=== PATIENT | male | born 1940 | race Caucasian/White ===

== ENCOUNTER 2018-01-13 07:44 | Observation (INO) | payer OTHER ==
[~2018-01-13 07:44] MED LIST: BUPI/epINEPH/KETOROLAC IU ONE; NS IV ONE; POVIDONE-IODINE 20 ML in SODIUM CL IRRIG SOLUTION 500 ML IRR ONE; ROPIVACAINE 0.2% 80 MG, EPINEPHrine 0.2 MG, KETOROLAC TROMETHAMINE 30 MG in SYRINGE 0 ML IU ONE; TRANEXAMIC ACID IV ONE
[2018-01-13] MEDS ORDERED: ACETAMINOPHEN 325 MG TAB PO ONE (08:02)
[2018-01-13] MEDS ORDERED: LR 1,000 ML IV ONE (08:02)
[2018-01-13] MEDS ORDERED: ceFAZolin 2 GM/SWFI 2 GM/20 ML SYR IVP ONE (08:02)
[2018-01-13] MEDS ORDERED: LIDOCAINE 1% 2 ML INJ ID PRN (08:02)
[2018-01-13] MEDS ORDERED: ONDANSETRON 4 MG/2 ML VIAL IVP ONE (08:02)
[2018-01-13] MEDS ORDERED: GABAPENTIN 300 MG CAP PO ONE (08:02)
[2018-01-13] MEDS ORDERED: FAMOTIDINE 20 MG TAB PO ONE (08:02)
[2018-01-13] MEDS ORDERED: DEXAMETHASONE 4 MG/ML VIAL IVP ONE (08:02)
[2018-01-13] MEDS ORDERED: VANCOMYCIN 1 GM VIAL ONE (08:16)
[2018-01-13] MEDS ORDERED: ceFAZolin 1 GM/5 ML SYR ONE (08:17)
--- NOTE | 2018-01-13 08:59 | PDHPUP ---
History & Physical Update H&P update statement: This history and physical update is based on an assessment of the patient which was completed after admission or registration (within 24 hours), but prior to the surgery/procedure. H&P update: H&P reviewed & patient examined
[2018-01-13] MEDS ORDERED: MIDAZOLAM 2 MG/2 ML VIAL IVP ONE (09:34)
[2018-01-13] MEDS ORDERED: MIDAZOLAM 2 MG/2 ML VIAL ONE (09:37)
[2018-01-13] MEDS ORDERED: PROPOFOL/EMULSION 500 MG/50 ML BOTTLE IV ONE (09:40)
[2018-01-13] MEDS ORDERED: PROPOFOL 200 MG/20 ML VIAL ONE (09:41)
--- NOTE | 2018-01-13 09:59 | PDANEPAE ---
ANE History of Present Illness Knee OA ANE Past Medical History - Cardiovascular History Hx Hypertension: No Hx Arrhythmias: No Hx Chest Pain: No Hx Coronary Artery / Peripheral Vascular Disease: No Hx CHF / Valvular Disease: No Hx Palpitations: No - Pulmonary History Hx COPD: No Hx Asthma/Reactive Airway Disease: No Hx Recent Upper Respiratory Infection: No Hx Oxygen in Use at Home: No Hx Sleep Apnea: No Sleep Apnea Screening Result - Last Documented: Negative - Neurologic History Hx Cerebrovascular Accident: No Hx Seizures: No Hx Dementia: No - Endocrine History Hx Diabetes: No - Renal History Hx Renal Disorders: No - Liver History Hx Hepatic Disorders: No - Neurological & Psychiatric Hx Hx Neurological and Psychiatric Disorders: No - Cancer History Hx Cancer: No - Congenital Disorder History Hx Congenital Disorders: No - GI History Hx Gastrointestinal Disorders: No - Other Health History Other Health History: NONE - Chronic Pain History Chronic Pain: No - Surgical History Prior Surgeries: NONE ANE Review of Systems Review of Systems: - Exercise capacity METS (RN): 4 METS ANE Patient History - Allergies Allergies/Adverse Reactions: No Known Allergies Allergy (Verified 12/23/17 12:31) - Home Medications Home medications: home medication list seen and reviewed Home Medications: Aspirin [Aspirin 81mg (*)] 81 mg PO DAILY 12/22/17 [Last Taken 1 Week Ago ~01/06] - NPO status NPO Since - Liquids (Date): 01/12/18 NPO Since - Liquids (Time): 20:30 NPO Since - Solids (Date): 01/12/18 NPO Since - Solids (Time): 19:00 - Anes Hx Anes Hx: no prior problems (Zero prior GA or RA, local only) - Smoking Hx Smoking Status: Former smoker - Family Anes Hx Family Hx Anesthesia Complications: NONE ANE Labs/Vital Signs - Vital Signs Blood Pressure: 174/99 Heart Rate: 55 Respiratory Rate: 16 O2 Sat (%): 96 Height: 175.26 cm Weight: 72.121 kg ANE Physical Exam - Airway Neck exam: FROM Mallampati Score: Class 2 Mouth exam: dentures - Pulmonary Pulmonary: clear to auscultation - Cardiovascular Cardiovascular: regular rate and rhythym - ASA Status ASA Status: I ANE Anesthesia Plan Anesthesia Plan: spinal Regional Anesthesia: continuous NB (Will dose in AM and pull cath), adductor canal FNB
--- NOTE | 2018-01-13 10:26 | PDANEPAE ---
ANE Past Medical History - Cardiovascular History Hx Hypertension: No Hx Arrhythmias: No Hx Chest Pain: No Hx Coronary Artery / Peripheral Vascular Disease: No Hx CHF / Valvular Disease: No Hx Palpitations: No - Pulmonary History Hx COPD: No Hx Asthma/Reactive Airway Disease: No Hx Recent Upper Respiratory Infection: No Hx Oxygen in Use at Home: No Hx Sleep Apnea: No Sleep Apnea Screening Result - Last Documented: Negative - Neurologic History Hx Cerebrovascular Accident: No Hx Seizures: No Hx Dementia: No - Endocrine History Hx Diabetes: No - Renal History Hx Renal Disorders: No - Liver History Hx Hepatic Disorders: No - Neurological & Psychiatric Hx Hx Neurological and Psychiatric Disorders: No - Cancer History Hx Cancer: No - Congenital Disorder History Hx Congenital Disorders: No - GI History Hx Gastrointestinal Disorders: No - Other Health History Other Health History: NONE - Chronic Pain History Chronic Pain: No - Surgical History Prior Surgeries: NONE ANE Review of Systems Review of Systems: - Exercise capacity METS (RN): 4 METS ANE Patient History - Allergies Allergies/Adverse Reactions: No Known Allergies Allergy (Verified 12/23/17 12:31) - Home Medications Home medications: home medication list seen and reviewed Home Medications: Aspirin [Aspirin 81mg (*)] 81 mg PO DAILY 12/22/17 [Last Taken 1 Week Ago ~01/06] - NPO status NPO Since - Liquids (Date): 01/12/18 NPO Since - Liquids (Time): 20:30 NPO Since - Solids (Date): 01/12/18 NPO Since - Solids (Time): 19:00 - Smoking Hx Smoking Status: Former smoker - Family Anes Hx Family Hx Anesthesia Complications: NONE ANE Labs/Vital Signs - Vital Signs Blood Pressure: 174/99 Heart Rate: 55 Respiratory Rate: 16 O2 Sat (%): 96 Height: 175.26 cm Weight: 72.121 kg
[2018-01-13] MEDS ORDERED: ROPIVACAINE HCL 150 MG/30 ML INJ ONE (11:00)
--- NOTE | 2018-01-13 11:17 | POSTOPPROG ---
Post Op Note Date of Operation: 01/13/18 Surgeon: Eric Iqbal Customer Service Associate: Shaggy Anesthesiologist: Dr. Paul Mancilla Post-op Diagnosis: Right knee severe degenerative arthritis Procedure: Right total knee arthroplasty Inf/Abcess present in the surg proc area at time of surgery?: No EBL: 50-100 (Adductor canal block in PACU with indwelling catheter.)
[2018-01-13] MEDS ORDERED: traMADol 50 MG TAB PO PRN (11:31)
[2018-01-13] MEDS ORDERED: BISACODYL 10 MG SUPP PR PRN (11:31)
[2018-01-13] MEDS ORDERED: NS 500 ML IV PRN (11:31)
[2018-01-13] MEDS ORDERED: POLYETHYLENE GLYCOL 3350 17 GM PKT PO PRN (11:31)
[2018-01-13] MEDS ORDERED: ONDANSETRON DISINTEGRATING 4 MG TAB PO PRN (11:31)
[2018-01-13] MEDS ORDERED: PROMETHAZINE HCL 25 MG SUPPR PR PRN (11:31)
[2018-01-13] MEDS ORDERED: DIPHENOXYLATE/ATROPINE LOMOTIL 1 TAB PO PRN (11:31)
[2018-01-13] MEDS ORDERED: LACTULOSE 20 GM/30 ML UDCUP PO PRN (11:31)
[2018-01-13] MEDS ORDERED: TEMAZEPAM 15 MG CAP PO PRN (11:31)
[2018-01-13] MEDS ORDERED: METOCLOPRAMIDE 10 MG/2 ML VIAL IVP PRN (11:31)
[2018-01-13] MEDS ORDERED: PROMETHAZINE HCL 25 MG/ML INJ IVP PRN (11:31)
[2018-01-13] MEDS ORDERED: MAGNESIUM HYDROXIDE 30 ML UDCUP PO PRN (11:31)
[2018-01-13] MEDS ORDERED: diphenhydrAMINE 25 MG CAP PO PRN (11:31)
[2018-01-13] MEDS ORDERED: CYCLOBENZAPRINE 10 MG TAB PO PRN (11:31)
[2018-01-13] MEDS ORDERED: ONDANSETRON 4 MG/2 ML VIAL IVP PRN (11:31)
--- NOTE | 2018-01-13 11:53 | POSTANESTH ---
Post Anesthetic Evaluation Cardiovascular Status: Similar to Pre-Op Cond Respiratory Status: Similar to Pre-op Cond. Level of Consciousness/Mental Status: Alert and Oriented Pain Control: Adequate, Prn Tx Ordered Nausea/Vomiting Control: Adequate, Prn Tx Ordered Complications Possibly Related to Anesthesia: None Noted (Indwelling AC block done in PACU.)
[2018-01-13] MEDS: ACETAMINOPHEN 325 MG TAB PO SCH ×3 (12:00→23:40)
[2018-01-13] MEDS ORDERED: LR 1,000 ML IV SCH (12:00)
--- NOTE | 2018-01-13 13:12 | GOP ---
[f rep st] OPERATIVE REPORT DATE OF OPERATION: 01/13/2018 SURGEON: Eric Iqbal MD WRAPPER CASHIER: Nehemias Méndez and Pepe Alexander. ANESTHESIA: Combination of Marcaine, spinal, IV sedation, and adductor canal block. ANESTHESIOLOGIST: Dr. Paul Mancilla. PREOPERATIVE DIAGNOSIS: Right knee severe degenerative arthritis. POSTOPERATIVE DIAGNOSIS: Right knee severe degenerative arthritis. PROCEDURE PERFORMED: Right total knee arthroplasty, cemented, Sr and Nephew Journey II, posterior stabilized surgeon. FINDINGS: DESCRIPTION OF PROCEDURE: The patient was given 2 g of IV Ancef preoperatively within 60 minutes of surgery. He also received IV tranexamic acid at a dose of 10 mg/kg. He was placed on the operating room table and given spinal anesthesia with Marcaine by Dr. Mancilla. He was then placed supine and given IV sedation. A Hatch catheter was not used. He wore a ALEXI stocking and SCD on the nonoper ative leg. His right lower extremity was prepped with ChloraPrep from the upper thigh tourniquet to the tips of the toes. It was draped free using sterile sheets, stockinette, and Ioban plastic adhesi ve drapes. The lower leg was wrapped with compressive Coban. The leg was exsanguinated with elevati on and a 6-inch compressive wrap, and a pneumatic tourniquet was inflated to 250 mmHg. The [employer] time-out was performed to verify the correct patient identity and the c orrect surgical side and site. The [employer] time-out was also performed. The DDx Mediaayo leg holding device was sterilely attached to the operating room table and used throughout the procedure to help position the knee. A straight midline incision was made centered on the patell a. Subcutaneous tissues were sharply divided, and hemostasis was obtained using electrocautery. A m edial subcutaneous flap was developed, and the capsule and synovium were opened in a medial parapatel lar fashion. Extensive degenerative changes were present, primarily in the patellofemoral joint and lateral compartment. He had erosion into the lateral tibial plateau. The medial capsule and periost eum were lightly elevated off the rim and medial tibial plateau all around to the posteromedial corne r. Because of the slight valgus deformity, I was careful not to over release the medial collateral l igament. In order to improve exposure, the patella was prepared first. The original thickness of the patella was measured. Peripheral osteophytes were removed. I cut a flat surface on the back of the patella. It was sized for a 35 mm round resurfacing component. I removed enough bone from the patella such that the remaining bone plus the thickness of the patellar component recreated the original thickness of the patella. The composite thickness was 24 mm. The intramedullary alignment guide system was used to set up the distal femoral cut. The distal femu r was cut in 5 degrees of valgus. He had a slight preoperative flexion contracture. I made a +2 mm cut on the distal femur. The sizing jig was used to determine proper femoral sizing. I shifted the size 6 jig anteriorly 1 mm in order to accommodate the size 6 jig without notching the anterior corry x. The 5 in 1 cutting block was applied, and anterior and posterior condylar cuts and chamfer cuts w ere made. The final jig was used to remove the central portion of the distal femur to accommodate th e posterior stabilized femoral component. I was careful to determine proper rotation by referencing off Whitesides line and other bony landmarks. Each cut was checked for accuracy before and after it was made. The femur was sized for a size 6 posterior stabilized component. Next, the tibia was prepared. The proximal tibial cut was made using the extramedullary alignment gu patricia system. The cut was made in a few degrees of posterior slope. I was careful to achieve proper v arus valgus alignment and proper rotation. The posterior compartment was cleared of meniscal remnant s. Osteophytes were removed from the back of the femoral condyles. I checked the flexion and extens ion gaps, and they were equal, balanced and rectangular. The tibia was sized for a size 5 component. With the trial components in place, I selected the 9 mm polyethylene posterior stabilized tibial in sert. The knee came to full extension and flexed to 130 degrees. There was no overstuffing in flexi on. His collateral ligaments were stable and balanced in 90 degrees of flexion and full extension. The trial patellar button was applied and patellar tracking was checked. Tracking was excellent with out any digital pressure. 40 mL of the joint anesthetic cocktail were injected into the posterior capsule, the periarticular st ructures, the quadriceps muscle and tendon areas, and the subcutaneous tissues around the skin edges. A second dose of IV tranexamic acid was given at a dose of 10 mg/kg. The surfaces were prepared for cementing. They were carefully cleaned with the pulsating lavage irri gation and thoroughly dried. The CarboJet device was used to blow dry the cancellous surfaces. A do uble batch of high viscosity methylmethacrylate cement with 2 g of powdered vancomycin added was mixe d. While it was still in a doughy state, all 3 components were cemented in place. Excess cement was removed before it hardened. The 9 mm trial tibial insert was re-tried and was the proper thickness. The actual component was ins erted and locked into place. The knee was thoroughly irrigated one final time with a dilute Betadine solution. The tourniquet was deflated. Total tourniquet time was 46 minutes. The vastus medialis portion of the extensor mechanism was repaired with several interrupted figure-of -eight #2 FiberWire sutures. The capsule and synovium were closed first with multiple interrupted fi [id number] 0 PDS sutures, followed by a running #2 barbed Ethicon Stratafix PDO suture. The subcu taneous tissues were closed with a running 0 barbed Ethicon Stratafix Monoderm suture. The skin was closed with a running 3-0 barbed Ethicon Stratafix Monoderm subcuticular suture. The skin was sealed with half-inch Steri-Strips. The wound was covered with a large Mepilex waterproof sterile dressing and a 6-inch compressive wrap. A long-leg ALEXI stocking and SCD were applied followed by the cooling device. The patient wore a stocking and SCD on the opposite leg. The patient wore the Mepilex sacr al dressing during the procedure. I used a size 6 cemented Sr and Nephew Oxinium posterior stabilized femoral component, a size 5 ce mented tibial base plate, a 9 mm posterior stabilized tibial insert and a 35 mm cemented round all-po lyethylene resurfacing patellar component. The estimated blood loss following deflation of the tourniquet was about 100 cc. The sponge and needle count were correct on 2 occasions. The patient was awakened from anesthesia, transferred to his [facility] and taken to PACU in sat isfactory condition. There were no recognized intraoperative complications. In the PACU, for additi onal postoperative pain control, Dr. Mancilla performed an adductor canal block with an indwellin g catheter. Nehemias Méndez and Pepe Alexander acted as surgical assistants. Their assistance was a medical necess ity for safe completion of the procedure. /[id number]/MODL
[2018-01-13] MEDS ORDERED: ceFAZolin 2 GM/DEXTROSE 100 ML IV SCH (14:00)
[2018-01-13] MEDS: KETOROLAC 30 MG/1 ML SDV IVP PRN (16:04)
[2018-01-13] MEDS: TRANEXAMIC ACID 650 MG TAB PO SCH (17:46)
[2018-01-13] MEDS: ceFAZolin 2 GM/SWFI 2 GM/20 ML SYR IVP SCH (17:48)
[2018-01-13] MEDS: oxyCODONE IR 5 MG TAB PO PRN (17:51)
[2018-01-13] MEDS ORDERED: hydrALAZINE 10 MG TAB PO PRN (22:38)
[2018-01-13] MEDS: ASPIRIN 325 MG TAB PO SCH (23:40)
[2018-01-13] MEDS: FAMOTIDINE 20 MG TAB PO SCH (23:40)
[2018-01-13] MEDS: SENNOSIDES/DOCUSATE SODIUM TAB PO SCH (23:40)
--- NOTE | 2018-01-13 23:40 | PDHOSCONS ---
History and Physical - Chief Complaint Hypertension - History of Present Illness 77 yo M, very healthy, admitted for elective R TKA performed on 01/13 without complication. The hospitalist service was consulted for evaluation of elevated blood pressure in the post-op setting. His SBP has ranged from 150-180 in the period following surgery. He is not usually on medication for BP. He checks his BP about 5 times per week and usually gets SBP values in 130-140 range. This was the case on the morning prior to surgery. He is currently asymptomatic. His most recent SBP is 150 and he denies any acute pain. History Information - Allergies/Home Medication List Allergies/Adverse Reactions: No Known Allergies Allergy (Verified 12/23/17 12:31) Home Medications: Aspirin [Aspirin 81mg (*)] 81 mg PO DAILY 12/22/17 [Last Taken 1 Week Ago ~01/06] I have personally reviewed and updated: family history, medical history - Past Medical History arthritis - Surgical History Additional surgical history: R TKA 01/13/18 - Family History Negative for: hypertension - Social History Smoking Status: Former smoker Review of Systems Review of Systems: ROS: 10pt was reviewed & negative except for what was stated in HPI & below Physical Exam Physical Exam: Temp Pulse Resp BP Pulse Ox 36.9 C 69 16 150/65 H 93 01/13/18 23:09 01/13/18 23:09 01/13/18 23:09 01/13/18 23:09 01/13/18 23:09 O2 (L/minute) 2 Constitutional: no apparent distress, not in pain Eyes: PERRL, EOMI Ears, Nose, Mouth, Throat: moist mucous membranes, no oral mucosal ulcers Cardiovascular: regular rate and rhythym, no murmur, rub, or gallop Respiratory: no respiratory distress, no rales or rhonchi Gastrointestinal: normoactive bowel sounds, soft, non-tender abdomen Skin: warm, normal color, other (Surgical bandage R knee) Neurologic: AAOx3, CN II-XII Intact Psychiatric: interacting appropriately, not anxious Lab Data & Imaging Review 01/13/18 22:28 Sodium 135 mEq/L (135-145) 01/13/18 22:28 Potassium 4.8 mEq/L (3.5-5.2) 01/13/18 22:28 Chloride 104 mEq/L (97-110) 01/13/18 22:28 Carbon Dioxide 26 mEq/l (22-31) 01/13/18 22:28 Anion Gap 5 mEq/L (8-16) L 01/13/18 22:28 BUN 16 mg/dL (7-23) 01/13/18 22:28 Creatinine 0.9 mg/dL (0.7-1.3) 01/13/18 22:28 Estimated GFR > 60 01/13/18 22:28 Glucose 139 mg/dL (70-100) H 01/13/18 22:28 Calcium 8.8 mg/dL (8.5-10.4) 01/13/18 22:28 Imaging Review: Imaging Impressions Knee X-Ray 01/13/18 11:32 Impression: Excellent postoperative alignment. Assessment & Plan Assessment: 77 yo M admitted for R TKA found to have elevated BP in post-operative setting. Plan: 1. Elevated BP without diagnosis of hypertension - Patient has had SBP's in the 150-180 range following surgery. He is in excellent health at baseline and checks his BP 5 times weekly. At home, including on the morning prior to surgery , his SBP is in the 130-140 range. I suspect his BP is elevated due to catecholamine and cytokine release from surgical procedure, which should be temporary. For this reason I will order only PRN medication and opt to not start daily, scheduled medication. - Hydralazine 10 mg PO TID PRN for SBP>180 Thank you for this consult, the hospitalist service will follow along with you. Please do not hesitate to contact us with any questions.
[2018-01-14] MEDS: KETOROLAC 30 MG/1 ML SDV IVP PRN (00:06)
[2018-01-14] MEDS: TRANEXAMIC ACID 650 MG TAB PO SCH ×2 (02:13→09:43)
[2018-01-14] MEDS: ceFAZolin 2 GM/SWFI 2 GM/20 ML SYR IVP SCH (02:14)
[2018-01-14] MEDS: ACETAMINOPHEN 325 MG TAB PO SCH ×2 (05:07→13:18)
--- NOTE | 2018-01-14 07:51 | SOAPPROG ---
SOAP Progress Note Assessment/Plan: Assessment: POD #1 s/p TKA Awake, alert, afebrile. No RICKS. Blood pressure elevated overnight, but ok now. Dressing clean and dry. Post op films look good. VSS. H H ok. OOB yesterday. Voiding on own. Plan: pt/OT today. D/c to home later today. 01/14/18 07:49 Objective: Vital Signs Temp Pulse Resp BP Pulse Ox 36.8 C 60 14 133/84 H 95 01/14/18 07:16 01/14/18 07:16 01/14/18 07:16 01/14/18 07:16 01/14/18 07:16 Laboratory Results 01/14/18 04:24 01/13/18 22:28 01/13/18 01/14/18 01/15/18 05:59 05:59 05:59 Intake Total 750 46.9 Output Total 1250 Balance -500 46.9 ICD10 Worksheet Patient Problems: Problems Problem Status Onset Osteoarthritis of right knee Acute
[2018-01-14] MEDS: FAMOTIDINE 20 MG TAB PO SCH (09:42)
[2018-01-14] MEDS: ASPIRIN 325 MG TAB PO SCH (09:42)
[2018-01-14] MEDS: SENNOSIDES/DOCUSATE SODIUM TAB PO SCH (09:42)
[2018-01-14] MEDS ORDERED: ROPIVACAINE HCL 150 MG/30 ML INJ ONE (11:23)
[2018-01-14 11:47] VITALS: BP 152/82
--- NOTE | 2018-01-14 11:48 | HOSPPROG ---
Hospitalist Progress Note Assessment/Plan: 77 yo M admitted for R TKA found to have elevated BP in post-operative setting. 1st encounter, chart reviewed. Plan: 1. Elevated BP without diagnosis of hypertension - -resolved -Patient has had SBP's in the 150-180 range following surgery. -I suspect his BP was elevated due to catecholamine and cytokine release from surgical procedure - Hydralazine 10 mg PO TID PRN for SBP>180 2. Footdrop -per ortho recs 3. Dispo -anticipate today or tomorrow Subjective: Up to the bathroom. Still having some pain. Objective: Vital Signs Temp Pulse Resp BP Pulse Ox 36.8 C 60 14 133/84 H 95 01/14/18 07:16 01/14/18 07:16 01/14/18 07:16 01/14/18 07:16 01/14/18 07:16 Laboratory Results 01/14/18 04:24 01/13/18 22:28 01/13/18 01/14/18 01/15/18 05:59 05:59 05:59 Intake Total 750 46.9 Output Total 1250 Balance -500 46.9 - Physical Exam Constitutional: no apparent distress, appears nourished, not in pain Eyes: PERRL, anicteric sclera, EOMI Ears, Nose, Mouth, Throat: moist mucous membranes, hearing normal, ears appear normal Cardiovascular: No JVD, No tachycardia, No edema Respiratory: no respiratory distress, no rales or rhonchi, clear to auscultation Gastrointestinal: No tenderness, No ascites, No guarding Skin: warm, normal color, No mottled Musculoskeletal: joint tenderness, pain with ROM, generalized weakness Neurologic: AAOx3 Psychiatric: interacting appropriately, not anxious, not encephalopathic ICD10 Worksheet Patient Problems: Problems Problem Status Onset Osteoarthritis of right knee Acute
[2018-01-14] MEDS: oxyCODONE IR 5 MG TAB PO PRN (15:01)
--- NOTE | 2018-01-14 15:42 | ASMTCMCOM ---
CM Note CM Note Notes: OT rec home, PT rec home/outpatient. Pt medically stable for d/c with family support, no CM d/c needs identified. Date Signed: 01/14/2018 03:42 PM Electronically Signed By:SAULO Jimenez
== END 2018-01-14 15:38 | disposition home or self-care (01) ==
LOC: F3N 07:44
PROVIDERS: ADMIT Orthopaedic Surgery; ATTEND Orthopaedic Surgery
PROC: 0SRC0J9 Replacement of Right Knee Joint with Synthetic Substitute, Cemented, Open Approach (ICD-10-PCS; principal; 2018-01-13 09:15)
DX: M17.11 Unilateral primary osteoarthritis, right knee (principal); I97.3 Postprocedural hypertension; Z87.891 Personal history of nicotine dependence
CPT/HCPCS: 27447; 73560; 77073; 88311; 97110; 97116; 97161; 97166; 97530; C1713; C1776; G0378; G8978; G8979; G8980; G8987; G8988; J0171; J0690; J1100; J1885; J2250; J2405; J2704; J2795; J3370

== ENCOUNTER 2018-01-23 12:28 | Emergency (ER) | payer OTHER ==
--- NOTE | 2018-01-23 12:52 | EDPHY ---
HPI/HX/ROS/PE/MDM Narrative: CHIEF COMPLAINT: Right calf pain and swelling s/p knee replacement HPI: The patient is a 77 y/o male 10 days s/p right total knee replacement by Dr. Iqbal, orthopedic surgeon, complaining of right calf pain and swelling. Since the surgery his right calf has had a worsening tightening sensation associated with pain. Due to this pain he was prescribed Vicodin. This morning he was unable to bear weight due to the calf pain. The pain in his knee has been decreasing since the surgery. He denies fever. He is currently taking a full dose of Aspirin daily. Denies history of a PE or DVT, chest pain, shortness of breath, abdominal pain, or urinary complaints. REVIEW OF SYSTEMS: Aside from elements discussed in the HPI, a comprehensive 10-point review of systems was reviewed and is negative. PMH: Right total knee replacement (01/13/18) SOCIAL HISTORY: at bedside, lives in [place], works as a Counselor PHYSICAL EXAM: General: Patient is alert, in no acute distress. ENT: Eyes are normal to inspection. ENT inspection normal. Neck: Normal inspection. Full range of motion. Respiratory: No respiratory distress. Breath sounds normal bilaterally. Cardiovascular: Regular rate and rhythm. Strong peripheral pulses. Normal cap refill. Extremities: Right anterior total knee incision is present and healing well., diffuse posterior right calf swelling with trace edema. Normal warmth, color distal foot. Neuro: Oriented x3. Normal motor function. Normal sensory function. ED Course: 1351: Spoke with Dr. Barrett, radiologist, patient's right lower extremity ultrasound is negative for a DVT. 1400: Reassessed patient and discussed negative imaging and laboratory findings. I have advised him to follow up with his orthopedic surgeon in the next week. Return precautions provided; patient and his are comfortable with this plan. MDM: This patient presents with moderate unilateral calf swelling in setting of recent total knee replacement. There is no evidence of infection or septic arthritis. Patients states knee pain much improved, now only calf pain. US is negative for DVT. Patient comfortable with the plan to be discharged home and follow-up with his orthopedist. - Data Points Imaging Results: Imaging Impressions Extremity Venous Study 01/23/18 12:47 Impression: No evidence of deep vein thrombosis in the right lower extremity. A message was left for Dr. Mcconnell 1:51 PM. Imaging: Discussed imaging studies w/ edging machine setter Radiologist General Time Seen by Provider: 01/23/18 12:51 Initial Vital Signs: Initial Vital Signs Temperature (C) 36.4 C 01/23/18 12:36 Heart Rate 93 01/23/18 12:36 Respiratory Rate 18 01/23/18 12:36 Blood Pressure 150/87 H 01/23/18 12:36 O2 Sat (%) 95 01/23/18 12:36 O2 Delivery Mode Room Air Allergies/Adverse Reactions: No Known Allergies Allergy (Verified 01/23/18 12:35) Home Medications: Medication Instructions Recorded Acetaminophen [Tylenol 325mg (*)] 650 mg PO Q6HRS tab 01/14/18 Aspirin [Aspirin 325 mg (*)] 325 mg PO DAILY tab 01/14/18 Ondansetron Odt [Zofran Odt 4 mg 4 mg PO Q4HRS PRN tab 01/14/18 (*)] Sennosides/Docusate Sodium 1 - 2 tab PO BID tab 01/14/18 [Senokot-S] celeCOXIB [Celebrex (*)] 200 mg PO DAILY cap 01/14/18 Vicodin 5-300 mg Tablet 01/23/18 Departure - Departure Disposition: Home, Routine, Self-Care Clinical Impression: Leg swelling Condition: Good Instructions: Leg Edema (ED) Additional Instructions: Rest, ice, elevation. Follow up with an orthopedic surgeon within one week. Return to the emergency department for worsening pain, swelling, numbness, weakness or other concerns. Referrals: Dylan Solis MD [Primary Care Provider] - As per Instructions Eric Iqbal MD [Medical Doctor] - As per Instructions Report Scribed for: Tavo Mcconnell Report Scribed by: Aydee Barron Date of Report: 01/23/18 Time of Report: 12:52 Physician Review and Approval Statement: Portions of this note were transcribed by an ED scribe. I personally performed the history, physical exam, and medical decision making; and confirm the accuracy of the information in the transcribed note.
[2018-01-23 14:11] VITALS: BP 148/89
== END 2018-01-23 14:12 | disposition home or self-care (01) ==
DX: M96.89 Other intraoperative and postprocedural complications and disorders of the musculoskeletal system (principal); Z79.82 Long term (current) use of aspirin

== ENCOUNTER 2018-02-18 16:02 | Inpatient (IN) | payer OTHER ==
--- NOTE | 2018-02-18 14:13 | GHP ---
[f rep st] PREOP HISTORY AND PHYSICAL DATE OF ADMISSION: 02/18/2018 PROBLEM: Infected right total knee arthroplasty. HISTORY OF PRESENT ILLNESS: The patient is a 77-year-old male who will be admitted for incision and drainage and likely polyethylene liner exchange with Dr. Edwards. The patient underwent a right total k nee arthroplasty 5 weeks ago, without complications. Two weeks after surgery, the patient had a port ion of his incision that was slow to heal. Then, 5 days ago, he believes some water got underneath h is waterproof dressing, and after he developed a foul-smelling incision, he removed the dressing and saw that it had an abnormal appearance. He was in the office earlier today and diagnosed with a mini mum of a superficial skin infection and could not fully exclude a joint infection. Because of the na ture of his incision and duration of symptoms, it is felt that oral antibiotics would not be an appro priate approach, and therefore, I and D with polyethylene liner exchange as needed will be performed. PAST MEDICAL HISTORY: Noncontributory. CURRENT MEDICATIONS: Celebrex, cyclobenzaprine, [place], tramadol, Zofran, and zolpidem. ALLERGIES: He has no known drug allergies. SOCIAL HISTORY: The patient is . He is a former smoker. 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 Moderate alcohol intake. Moderate caffeine intake. His activit ies include hiking, cycling and tennis. FAMILY HISTORY: Noncontributory. PAST SURGICAL HISTORY: A right total knee arthroplasty on 01/13/2018. PHYSICAL EXAMINATION: VITALS: Height 5 feet 8 inches tall, weight 158 pounds, BMI 23.7. HEENT: He ad is normocephalic, atraumatic. Eyes are PERRLA. Conjunctivae and sclerae are clear. Mouth: He h as good oral hygiene, without any loose teeth. LUNGS: Clear. HEART: Regular rate and rhythm, without murmurs, gallops, or rubs. EXTREMITIES: Pertinent findings are limited to the patient's right knee. He has an eschar over the distal half of his surgical inci yeimy from his right total knee arthroplasty 5 weeks ago. There is exudate from his incision as well. There is no detectable intra-articular effusion of the knee joint. He has 0 degrees of extension a nd 130 degrees of flexion. There is no pain with active or passive range of motion of the knee. The re is a foul smell to his incision. There is no calf swelling or lymphadenopathy noted. He is neuro vascularly intact, with intact skin. IMPRESSION: On admission, 5 weeks status post right total knee arthroplasty with cellulitis and prob able bursitis. Cannot fully exclude a septic joint. PLAN: The plan will be for the patient to undergo I and D with polyethylene liner exchange as needed with Dr. Edwards later this afternoon. He will also be followed by Infectious Disease postoperatively. All questions are answered, and the patient consents to surgery here in the office today. Copy requested to: Dr. Iqbal /[id number]/MODL
[~2018-02-18 16:02] MED LIST changes: -BUPI/epINEPH/KETOROLAC IU ONE; -NS IV ONE; -POVIDONE-IODINE 20 ML in SODIUM CL IRRIG SOLUTION 500 ML IRR ONE; -ROPIVACAINE 0.2% 80 MG, EPINEPHrine 0.2 MG, KETOROLAC TROMETHAMINE 30 MG in SYRINGE 0 ML IU ONE; +SODIUM HYPOCHLORITE (DAKINS 1/4 STR) 473 ML BTL TP ONE; -TRANEXAMIC ACID IV ONE
[2018-02-18] MEDS ORDERED: ACETAMINOPHEN 325 MG TAB PO ONE (16:50)
[2018-02-18] MEDS ORDERED: FAMOTIDINE 20 MG TAB PO ONE (16:50)
[2018-02-18] MEDS ORDERED: GABAPENTIN 300 MG CAP PO ONE (16:50)
[2018-02-18] MEDS ORDERED: LR 1,000 ML IV ONE (17:21)
[2018-02-18] MEDS ORDERED: LIDOCAINE 1% 2 ML INJ ONE (17:25)
[2018-02-18 18:03] LABS: PLATELET COUNT 187 10^3/uL (150-400)
--- NOTE | 2018-02-18 20:31 | PDANEPAE ---
ANE History of Present Illness Right knee I and D ANE Past Medical History - Cardiovascular History Hx Hypertension: No Hx Arrhythmias: No Hx Chest Pain: No Hx Coronary Artery / Peripheral Vascular Disease: No Hx CHF / Valvular Disease: No Hx Palpitations: No - Pulmonary History Hx COPD: No Hx Asthma/Reactive Airway Disease: No Hx Recent Upper Respiratory Infection: No Hx Oxygen in Use at Home: No Hx Sleep Apnea: No Pulmonary History Comment: QUIT IN 1976 - Neurologic History Hx Cerebrovascular Accident: No Hx Seizures: No Hx Dementia: No - Endocrine History Hx Diabetes: No - Renal History Hx Renal Disorders: No - Liver History Hx Hepatic Disorders: No - Neurological & Psychiatric Hx Hx Neurological and Psychiatric Disorders: No - Cancer History Hx Cancer: No - Congenital Disorder History Hx Congenital Disorders: No - GI History Hx Gastrointestinal Disorders: No - Other Health History Other Health History: NONE - Chronic Pain History Chronic Pain: No - Surgical History Prior Surgeries: R. KNEE TOTAL REPLACEMENT AND CATARACT SURGERY JUL-AUG 2017 ANE Review of Systems Review of systems is: negative Review of Systems: - Exercise capacity METS (RN): 5 METS ANE Patient History - Allergies Allergies/Adverse Reactions: No Known Allergies Allergy (Verified 01/23/18 12:35) - Home Medications Home Medications: Vicodin 5-300 mg Tablet 01/23/18 [Last Taken 3 Weeks Ago ~01/28/18] Aspirin [Aspirin 325 mg (*)] 81 mg PO DAILY 02/18/18 [Last Taken 02/18/18] - NPO status NPO Since - Liquids (Date): 02/18/18 NPO Since - Liquids (Time): 13:00 NPO Since - Solids (Date): 02/18/18 NPO Since - Solids (Time): 09:00 - Anes Hx Anes Hx: no prior problems - Smoking Hx Smoking Status: Former smoker - Alcohol Use Alcohol Use: Occasionally - Family Anes Hx Family Hx Anesthesia Complications: NONE ANE Labs/Vital Signs - Labs Result Diagrams: 02/18/18 17:45 - Vital Signs Blood Pressure: 176/92 Heart Rate: 94 Respiratory Rate: 18 O2 Sat (%): 94 Height: 172.72 cm Weight: 70.307 kg ANE Physical Exam - Airway Mallampati Score: Class 1 Mouth exam: dentures - Pulmonary Pulmonary: no respiratory distress, no rales or rhonchi - Cardiovascular Cardiovascular: regular rate and rhythym, no murmur, rub, or gallop - ASA Status ASA Status: II ANE Anesthesia Plan Anesthesia Plan: GA w LMA Regional Anesthesia: adductor canal FNB
[2018-02-18] MEDS ORDERED: MIDAZOLAM 2 MG/2 ML VIAL IVP ONE (20:33)
[2018-02-18] MEDS ORDERED: POLYMYXIN B SULFATE 500,000 UNIT/10 ML SYR IRR ONE (20:45)
[2018-02-18] MEDS ORDERED: BACITRACIN 50,000 UNITS/10 ML SYR IRR ONE (20:45)
[2018-02-18] MEDS ORDERED: PROPOFOL/EMULSION 500 MG/50 ML BOTTLE IV ONE (20:56)
[2018-02-18] MEDS ORDERED: fentaNYL 100 MCG/2 ML INJ ONE ×3 (20:56→22:53)
[2018-02-18] MEDS ORDERED: ceFAZolin 1 GM VIAL ONE ×2 (21:27)
[2018-02-18] MEDS ORDERED: MEPERIDINE 25 MG/0.5 ML AMP IVP PRN (22:01)
[2018-02-18] MEDS ORDERED: LABETALOL HCL 5 MG/ML 20 ML MDV IVP PRN (22:01)
[2018-02-18] MEDS ORDERED: NALOXONE HCL 0.4 MG/ML INJ IVP PRN ×2 (22:01)
[2018-02-18] MEDS ORDERED: oxyCODONE IR 5 MG TAB PO PRN ×2 (22:01→22:32)
[2018-02-18] MEDS ORDERED: ENALAPRILAT DIHYDRATE 1.25 MG/ML VIAL IVP PRN (22:01)
[2018-02-18] MEDS ORDERED: ACETAMINOPHEN 500 MG TAB PO PRN (22:01)
[2018-02-18] MEDS ORDERED: LR 500 ML IV PRN (22:01)
[2018-02-18] MEDS ORDERED: PROMETHAZINE HCL 25 MG/ML INJ IVP PRN ×2 (22:01→22:32)
[2018-02-18] MEDS ORDERED: ONDANSETRON 4 MG/2 ML VIAL IVP PRN ×2 (22:01→22:32)
[2018-02-18] MEDS ORDERED: ENALAPRILAT DIHYDRATE 1.25 MG/ML VIAL ONE ×2 (22:05→23:03)
[2018-02-18] MEDS ORDERED: ONDANSETRON 4 MG/2 ML VIAL ONE (22:05)
--- NOTE | 2018-02-18 22:31 | POSTOPPROG ---
Post Op Note Date of Operation: 02/18/18 Surgeon: Amanda Edwards Anesthesiologist: charla Anesthesia: LMA Pre-op Diagnosis: r knee infection Procedure: i&d r knee Inf/Abcess present in the surg proc area at time of surgery?: Yes Depth: Superfical (Skin SQ) EBL: 50-100
[2018-02-18] MEDS ORDERED: LACTULOSE 20 GM/30 ML UDCUP PO PRN (22:32)
[2018-02-18] MEDS ORDERED: ONDANSETRON DISINTEGRATING 4 MG TAB PO PRN (22:32)
[2018-02-18] MEDS ORDERED: BISACODYL 10 MG SUPP PR PRN (22:32)
[2018-02-18] MEDS ORDERED: TAPENTADOL HCL 50 MG TAB PO PRN (22:32)
[2018-02-18] MEDS ORDERED: PROMETHAZINE HCL 25 MG SUPPR PR PRN (22:32)
[2018-02-18] MEDS ORDERED: TEMAZEPAM 15 MG CAP PO PRN (22:32)
[2018-02-18] MEDS ORDERED: MAGNESIUM HYDROXIDE 30 ML UDCUP PO PRN (22:32)
[2018-02-18] MEDS ORDERED: POLYETHYLENE GLYCOL 3350 17 GM PKT PO PRN (22:32)
[2018-02-18] MEDS ORDERED: DIPHENOXYLATE/ATROPINE LOMOTIL 1 TAB PO PRN (22:32)
[2018-02-18] MEDS ORDERED: diphenhydrAMINE 25 MG CAP PO PRN (22:32)
[2018-02-18] MEDS ORDERED: CYCLOBENZAPRINE 10 MG TAB PO PRN (22:32)
[2018-02-18] MEDS ORDERED: METOCLOPRAMIDE 10 MG/2 ML VIAL IVP PRN (22:32)
--- NOTE | 2018-02-18 22:39 | POSTANESTH ---
Post Anesthetic Evaluation Cardiovascular Status: Similar to Pre-Op Cond Respiratory Status: Normal, Stable, Similar to Pre-op Cond. Level of Consciousness/Mental Status: Can Participate in Eval, Moderately Sleepy Pain Control: Adequate, Prn Tx Ordered Nausea/Vomiting Control: Adequate, Prn Tx Ordered Complications Possibly Related to Anesthesia: None Noted
[2018-02-18] MEDS: fentaNYL 100 MCG/2 ML INJ IVP PRN ×2 (22:55→23:04)
[2018-02-18] MEDS ORDERED: LR 1,000 ML IV SCH (23:00)
[2018-02-18] MEDS: ASPIRIN 325 MG TAB PO SCH (23:38)
[2018-02-18] MEDS: FAMOTIDINE 20 MG TAB PO SCH (23:39)
[2018-02-19] MEDS: KETOROLAC 15 MG/1 ML SDV IVP SCH ×4 (00:19→18:03)
[2018-02-19] MEDS: ACETAMINOPHEN 325 MG TAB PO SCH ×5 (00:19→23:35)
[2018-02-19] MEDS: traMADol 50 MG TAB PO SCH ×5 (00:19→23:35)
[2018-02-19] MEDS: ceFAZolin 2 GM/DEXTROSE 100 ML IV SCH ×2 (05:08→14:25)
[2018-02-19] MEDS: SENNOSIDES/DOCUSATE SODIUM TAB PO SCH ×2 (08:04→21:42)
[2018-02-19] MEDS: FAMOTIDINE 20 MG TAB PO SCH ×2 (08:05→21:42)
[2018-02-19] MEDS: ASPIRIN 325 MG TAB PO SCH (08:05)
[2018-02-19] MEDS ORDERED: PNEUMOC 13-VAL CONJ-DIP CRM/PF 0.5 ML SYR IM ONE ×2 (08:16→14:18)
--- NOTE | 2018-02-19 13:23 | SOAPPROG ---
SOAP Progress Note Assessment/Plan: Assessment: POD #1, s/p R knee superficial I & D with Dr. Edwards. Awake, alert, afebrile CBC, CRP, and SED rate ok. Awaiting cultures. Mild pain. OOB with PT/OT today. Plan: Awaiting C & S. D/c home tomorrow. Cont w/ SL brace. Will d/c with appropriate abx. 02/19/18 13:21 Objective: Vital Signs Temp Pulse Resp BP Pulse Ox 36.6 C 42 L 17 168/71 H 94 02/19/18 12:00 02/19/18 12:00 02/19/18 12:00 02/19/18 12:00 02/19/18 12:00 Microbiology 02/18/18 21:28 Gram Stain - Final Knee - Eswab Laboratory Results 02/19/18 04:54 02/18/18 02/19/18 02/20/18 05:59 05:59 05:59 Intake Total 700 200 Output Total 10 Balance 690 200 ICD10 Worksheet Patient Problems: Problems Problem Status Onset Osteoarthritis of right knee Acute
--- NOTE | 2018-02-19 13:35 | ASMTCMCOM ---
CM Note CM Note Notes: Pt s/p I & D of knee. Pt had R TKA 01/13/18. PT/OT rec home. Blood cultures pending. Pt likely d/c home independent unless blood cultures show something of concern. CM to follow. Date Signed: 02/19/2018 01:34 PM Electronically Signed By:SAULO Jimenez
--- NOTE | 2018-02-19 20:33 | PDMN ---
Medical Necessity Medical necessity: Patient transitioned to inpatient status per physician and CMS guidelines: LOS will be > 2 midnights s/p I&D cellulitis of R TKA incision; awaiting culture results, ongoing mild pain.)
[2018-02-20] MEDS: ACETAMINOPHEN 325 MG TAB PO SCH (05:43)
[2018-02-20] MEDS: traMADol 50 MG TAB PO SCH (05:44)
[2018-02-20 07:22] VITALS: BP 166/92
--- NOTE | 2018-02-20 07:52 | SOAPPROG ---
SOAP Progress Note Assessment/Plan: Assessment: POD #1, s/p R knee superficial I & D with Dr. Edwards. Awake, alert, afebrile CBC, CRP, and SED rate ok. Awaiting cultures. Mild pain. OOB with PT/OT today. Plan: Awaiting C & S. D/c home tomorrow. Cont w/ SL brace. Will d/c with appropriate abx. 02/19/18 13:21 Assessment: POD #2 Awake, alert, afebrile. VSS. Cultures show no growth after 18hrs Mild pain. Dressing clean and dry. Plan: D/c home today. Tramadol and keflex for meds. will continue to follow C and S. f/u next week with Dr. Iqbal 02/20/18 07:50 Objective: Vital Signs Temp Pulse Resp BP Pulse Ox 36.9 C 74 15 166/92 H 91 L 02/20/18 07:20 02/20/18 07:20 02/20/18 07:20 02/20/18 07:20 02/20/18 07:20 Microbiology 02/18/18 21:28 Gram Stain - Final Knee - Eswab Laboratory Results 02/20/18 05:14 02/19/18 02/20/18 02/21/18 05:59 05:59 05:59 Intake Total 700 600 Output Total 10 Balance 690 600 ICD10 Worksheet Patient Problems: Problems Problem Status Onset Osteoarthritis of right knee Acute
[2018-02-20] MEDS: ASPIRIN 325 MG TAB PO SCH (09:18)
[2018-02-20] MEDS: FAMOTIDINE 20 MG TAB PO SCH (09:19)
[2018-02-20] MEDS: SENNOSIDES/DOCUSATE SODIUM TAB PO SCH (09:19)
--- NOTE | 2018-02-20 09:45 | ASDISCHSUM ---
Discharge Information Plan Status:Home with No Needs Medically Cleared to Leave:02/20/2018 Discharge Date:02/20/2018 CM D/C Disposition:Home, Routine, Self-Care ADT D/C Disposition:Home, Routine, Self-Care Projected Discharge Date:02/20/2018 12:00 AM Transportation at D/C:Family Discharge Delay Reason: Follow-Up Date:02/20/2018 12:00 AM Discharge Slot:1 - 8:01 am - 12:00 noon Final Diagnosis:I&D Knee Placement Information Patient Contact Information Contact Name:ALEXANDER Relationship: Address:[address] Work Phone: [facility] Alternate Phone: [facility]/Zip Code:[place] [address] Email: Financial Information Financial Class:Medicare Advantage Plans Primary Plan Desc:[facility] [employer] Primary Plan Number:[id number] Secondary Plan Desc: Secondary Plan Number: Assessment Information [facility] CM Progress Note CM Note CM Note Notes: Pt s/p I & D of knee. Pt had R TKA 01/13/18. PT/OT rec home. Blood cultures pending. Pt likely d/c home independent unless blood cultures show something of concern. CM to follow. Date Signed: 02/19/2018 01:34 PM Electronically Signed By:SAULO Jimenez Intervention Information Intervention Type:*IM-Signed Date of Service:02/20/2018 09:43 AM Patient Type:Inpatient Staff Member:Jennifer Sotelo Hours: Discipline: Severity: Comment:Patient given IM and signed for betty alejandra
--- NOTE | 2018-02-20 11:06 | ASMTLACE ---
CHARLIE # of Emergency department Answers: 1-2 visits in the last 6 months Score: 1 Date Signed: 02/20/2018 11:05 AM Electronically Signed By:Jennifer Sotelo
[2018-02-20] MEDS ORDERED: CEPHALEXIN 500 MG CAP PO SCH (12:00)
--- NOTE | 2018-02-23 11:48 | GDS ---
[f rep st] DISCHARGE SUMMARY ADMISSION DIAGNOSIS: status post right total knee arthroplasty with superficial infection. DISCHARGE DIAGNOSIS: status post right total knee arthroplasty with superficial infection. OPERATIONS PERFORMED: Right knee incision and drainage without poly liner exchange. POSTOPERATIVE COMPLICATIONS: None. CONDITION ON DISCHARGE: Improved. HOSPITAL COURSE: The patient was admitted to the hospital on the day of surgery. His sedimentation rate, CRP, and CBC were all normal. The same day under general anesthesia, the patient underwent a s uperficial I and D of his right total knee arthroplasty skin incision, which was suspected to be infe cted. Per Dr. Edwards, the patient's infection did not go any deeper than the subcutaneous tissues. Th ere was no evidence of intra-articular joint infection. The patient was treated with postoperative antibiotics via IV with Ancef. He was also discharged on Keflex. By the time of discharge, the patient was stable, afebrile. DISPOSITION: Patient is discharged to his home. DISCHARGE MEDICATIONS: Oral Keflex x10 days. Baby aspirin daily. He has prescriptions for tramadol for pain control. DISCHARGE INSTRUCTIONS: Straight leg brace in a locked position until seen in followup. He is to fo llow up in the office on , February 25, next week. /[id number]/MODL
--- NOTE | 2018-03-09 09:57 | GDS ---
[f rep st] DISCHARGE SUMMARY HISTORY OF PRESENT ILLNESS: This is a 77-year-old male, who had previously undergone a right total k nee replacement. Had been doing very well, but it was starting to have separation of his incision wh ich was starting to have a drainage. It was therefore decided to take him to the operating room in o [facility] to do a formal debridement of the knee to ensure he did not have an infection. HOSPITAL COURSE: Patient brought to the operating room on the day of admission, where he underwent a I and D of the knee with excision of the skin with primary closure. He was subsequently placed on I V antibiotics. Once his pain was under control and he was able to pass his physical therapy [place] es, he was able to be discharged on 02/20/2018 with instructions to continue to limit his flexion acr oss knee in order to allow the skin to heal and be weightbearing as tolerated, maintain his pain medi cation. He will follow up in the office for further evaluation. DISCHARGE DIAGNOSIS: Right knee superficial infection. /[id number]/MODL
--- NOTE | 2018-03-09 10:02 | GOP ---
[f rep st] OPERATIVE REPORT DATE OF OPERATION: 02/18/2018 SURGEON: Amanda Edwards MD ANESTHESIOLOGIST: By LMA. PREOPERATIVE DIAGNOSIS: Right knee infection. POSTOPERATIVE DIAGNOSIS: Right knee infection. PROCEDURE PERFORMED: Irrigation and debridement of right knee. FINDINGS: INDICATIONS: This is a 77-year-old male who had previously undergone a right total knee arthroplasty . Had been doing very well and progressing quickly with physical therapy particularly with flexion b ut the skin incision had started to separate, was starting to get drainage and it was therefore decid ed to take him to the operating room in order to do a formal irrigation and debridement. DESCRIPTION OF PROCEDURE: Patient brought to the operating room after the right side had been identi fied as correct side by the patient, nurse and physician. Once in the operating room, he was placed under general anesthesia using LMA. Once asleep, tourniquet placed around the upper portion the righ t thigh. The right lower extremity sterilely prepped and draped in usual fashion using /solution. Once prepped and draped, the limb was elevated for 2 minutes in order to exsanguinate it. After 2 m inutes the tourniquet was inflated to 250 mmHg. Aspiration was done of the knee away from the area o f the skin infection, and the fluid was clear with no blood or turbidity noted. It was sent to the l ab for Gram stain, cultures and sensitivities. The wound was then incised using the old scar. It wa s found to have a superficial involvement not going past the subcutaneous tissue. An elliptical inci yeimy was then done around the skin in order to get clean edges that were no longer affected. The wou nd was thoroughly irrigated with 3 L of antibiotic solution. Exploration was done of the extensor me chanism which was noted to be intact. The wound was then closed using 0 Vicryl suture. 2-0 Vicryl louise ture with a 3-0 V-Loc suture in a running subcuticular stitch used for the skin. The wound was dress ed with Steri-Strips, Xeroform, 4 x 4, wrapped in Webril. Tourniquet was deflated at 38 minutes. Le g was completely undraped in the operating room, tourniquet removed from the thigh and an Jose Luis wrap pl aced around the knee. The patient was then woken up, extubated, transferred onto a stretcher, and se nt to recovery room in good condition. TOURNIQUET TIME: 38 minutes. /[id number]/MODL
== END 2018-02-20 09:35 | disposition home or self-care (01) | DRG 858 ==
LOC: FSGY 16:02 → F3N 20:08 → OBSVTOIN 20:08 → F3N 23:28
PROVIDERS: ADMIT Orthopaedic Surgery; ATTEND Orthopaedic Surgery
PROC: 0JBL0ZZ Excision of Right Upper Leg Subcutaneous Tissue and Fascia, Open Approach (ICD-10-PCS; principal; 2018-02-18 18:45)
DX: T81.4XXA Infection following a procedure, initial encounter (principal); Z96.651 Presence of right artificial knee joint; Z23 Encounter for immunization
CPT/HCPCS: 97161-GP; 97165-GO; G0009; G0378; G8978-GP-CI; G8979-GP-CI; G8980-GP-CI; G8987-GO-CI; G8988-GO-CI; G8989-GO-CI; J0690; J1885; J2250; J2405; J2704; J3010